=== PATIENT | female | born 1955 | race Caucasian/White ===

== ENCOUNTER 2017-02-23 15:00 | Inpatient (IN) | payer OTHER ==
[~2017-02-23] VITALS: Ht 160 cm; Wt 77.9 kg
--- NOTE | ~2017-02-23 | OR ---
[facility]GE[facility] 61 Y [address] ROOM: [place] [address] LOCATION: [facility] ADMIT DATE: 03/08/2017 OR/Procedure Report DISCHARGE DATE: FAMILY PHYSICIAN: Ryann Vaz MD ATTENDING PHYSICIAN: ROBERTH CORONADO SURGEON: Roberth Coronado MD STATION USHER: LIZZY Yoder and Timothy Salvador CST/TRAIN GATE ATTENDANT. DATE OF PROCEDURE: 03/08/2017 PRE-OP DIAGNOSIS: Left knee degenerative joint disease (primary osteoarthritis). POST-OP DIAGNOSIS: Left knee degenerative joint disease (primary osteoarthritis). OPERATION: Left total knee arthroplasty with computer navigation. ANESTHESIA: Spinal anesthesia plus adductor canal block plus general endotracheal anesthesia plus periarticular local anesthesia (ropivacaine with epinephrine and Toradol). ESTIMATED BLOOD LOSS: Less than 10 mL. DRAIN: None. SPECIMEN: None. COMPLICATIONS: None. IMPLANT SYSTEM: Leonarda Triathlon Size 4 left posterior stabilized femoral component Size 3 universal modular tibial base plate 9 mm posterior stabilized size 3 X3 tibial polyethylene insert 32 mm oval X3 patella component (triple pegged). INDICATIONS FOR SURGERY: Ms. Lupe Fang is a 61-year-old female who presents with advanced left knee degenerative joint disease and associated severely compromised activities of daily living. The patient has decided to proceed with knee replacement after having been thoroughly counseled regarding the associated risks, benefits, and limitations. We have specifically reviewed the risks and implications of infection, deep venous thrombosis, pulmonary embolism, mortality, neurovascular complications, blood transfusion (and associated potential for disease transmission or transfusion reaction), stiffness, instability, mechanical deterioration of the components (due to PAT[facility] AGE: 61 Y [address] ROOM: [place] [address] LOCATION: [facility] ADMIT DATE: 03/08/2017 OR/Procedure Report DISCHARGE DATE: FAMILY PHYSICIAN: Ryann Vaz MD ATTENDING PHYSICIAN: ROBERTH CORONADO wear and or loosening), and the potential need for revision. We have also emphasized the importance of active involvement and compliance with post- operative physical therapy as a means of optimizing range of motion and functional recovery. Informed consent has been granted. DESCRIPTION OF PROCEDURE: The patient was positioned supine after administration of anesthesia and prophylactic antibiotics. A well-padded pneumatic tourniquet was placed around the left proximal thigh, and the left lower extremity was prepped and draped with vigilant sterile technique. The patient's name as well as the intended operative side and procedure were confirmed with a verbal time-out involving myself, the circulating nurse, the scrub nurse, and the anesthesiologist. Examination under anesthesia demonstrated no active skin lesions or masses. There was a moderate effusion. There was no erythema. There was no abnormal warmth. There were well healed inferomedial and inferolateral arthroscopy portal scars. Range of motion under anesthesia was from a 10-degree flexion contracture to 110-degrees of flexion. There was no ligamentous insufficiency. The left lower extremity was elevated and exsanguinated with an Esmarch wrap, and the pneumatic tourniquet was inflated to 300mmHg. The knee was approached through a longitudinal midline incision. A medial parapatellar arthrotomy was performed and the patella was everted. Examination of the joint space demonstrated a moderate amount of benign appearing translucent synovial fluid. There was a large osteophyte at the intercondylar notch. There were no loose bodies. There was mild generalized nonproliferative synovitis. There was fibrosis of the infrapatellar fat pad. This was excised. The cruciate ligaments were intact. The anterior 2/3rd of the medial meniscus was truncated. There was mild inner parameter tearing of the lateral meniscus. There were large osteophytes at the medial femoral condyle, medial tibial plateau, and superior patella. There were 2 separate 1 cm diameter regions of full thickness articular cartilage at the patella (one at the lateral facet and one at the medial aspect of the apex). There was a 1 cm wide area of full thickness articular cartilage loss extending sagitally centrally within the femoral trochlea. There were large osteophytes at the medial and lateral margins of the femoral trochlea. There was full thickness loss of articular cartilage involving 90% of the medial femoral condyle and 80% of the medial tibial plateau. There was grade 2 chondromalacia involving the lateral femoral condyle and the medial half of the lateral tibial plateau. Remnants of the menisci and cruciate ligaments were excised. The EpiSensor navigation femoral tracker was pinned in place at the distal aspect of the femoral trochlea. Absence of motion between the femur and the tracking PATIENT'S NAME: LUPE FANG [facility] AGE: 61 Y [address] ROOM: [address] [place], [place] [address] LOCATION: [facility] ADMIT DATE: 03/08/2017 OR/Procedure Report DISCHARGE DATE: FAMILY PHYSICIAN: Ryann Vaz MD ATTENDING PHYSICIAN: ROBERTH CORONADO device was confirmed manually and visually. Femoral osseous landmarks were obtained in order to calibrate the computer navigation system. Landmarks included the center of rotation of the ipsilateral hip, the center-point of the distal femur, the femoral AP axis, 57 points on the medial femoral condyle articular surface, and 57 points on the lateral femoral condyle articular surface. The Oversee computer navigation system was subsequently utilized to position the distal femoral resection block such that the distal femoral resection was performed perfectly perpendicular to the femoral mechanical axis. The distal femoral resection was performed with a Viewpoint oscillating saw. The Oversee computer navigation tibial tracker was pinned in place at the anterior aspect of the tibial plateau. Absence of motion between the tibia and the tracking device was confirmed manually and visually. Tibial osseous landmarks were obtained in order to calibrate the computer navigation system. Landmarks included the center-point of the tibial plateau, the AP tibial axis, 57 points on the medial tibial plateau articular surface, 57 points on the lateral tibial plateau articular surface, the medial malleolus, and the lateral malleolus. The Oversee computer navigation system was subsequently utilized to position the proximal tibial resection block such that the proximal tibial resection was performed perfectly perpendicular to the tibial mechanical axis. The proximal tibial resection was performed with a [employer] Precision oscillating saw. Perpendicularity of the tibial resection with respect to the tibial shaft axis was reconfirmed by inserting a spacer- block attached to an extramedullary guide mau. External rotation of the anterior and posterior femoral resections was set parallel to the epicondylar axis and carefully adjusted in order to create a rectangular flexion gap. The box resection was performed with a reciprocating saw. Anterior and posterior chamfer resections were performed with the oscillating saw. Posterior condyle osteophytes were excised with an osteotome. All other osteophytes were excised with a rongeur. Resection of all remnants of the menisci was reconfirmed. Flexion and extension gaps were confirmed to be symmetric and well balanced with a spacer-block technique. The patella resection was performed with an oscillating saw such that the composite thickness of the reconstructed patella was equivalent to the thickness of the eyak patella. Patella tracking was confirmed to be optimal. Patellar tracking was optimal and there was no need for a lateral retinacular release. All trial components were removed and all prepared osseous surfaces were thoroughly irrigated with pulsatile saline lavage and dried prior to cementing all three components in a single stage using Leonarda Simplex cement containing pre-mixed tobramycin. All extruded excess cement was removed. The entire PATIENT'S NAME: LUPE FANG [facility] AGE: 61 Y [address] ROOM: [address] [address] LOCATION: [facility] ADMIT DATE: 03/08/2017 OR/Procedure Report DISCHARGE DATE: FAMILY PHYSICIAN: Ryann Vaz MD ATTENDING PHYSICIAN: ROBERTH CORONADO joint space was thoroughly inspected and thoroughly irrigated with bacteriostatic pulsatile saline lavage to assure that there was no residual debris of any sort. Final range of motion was from full extension (with no passive hyperextension) to 130 degrees of flexion. Patella tracking was reconfirmed to be optimal. There was excellent anteroposterior stability at 90 degrees of flexion. There was 0-mm of medial lift-off to valgus stress in full extension. There was 1- mm of lateral lift-off to varus stress in full extension. The arthrotomy was closed with multiple simple and [id number] interrupted #1 Vicryl. Subcutaneous tissues were thoroughly re-irrigated with bacteriostatic pulsatile saline lavage. Subcutaneous tissues were re- approximated with simple buried interrupted #0 Vicryl sutures. The skin was closed with simple buried interrupted 2-0 Vicryl sutures followed by surgical bharat. The dressing consisted of Xeroform gauze, 4x4 gauze, ABD pads and two 6-inch Laith Wraps. There were no intra-operative complications. It should be noted that the physician's veterinary assistant played an active, integral role throughout this entire operation. By providing expert retraction, they greatly facilitated and expedited safe and effective exposure of the distal femur, proximal tibia and patella for preparation and implantation of the components. They were also actively involved in the patient's positioning, prepping and draping, as well as wound closure. MD DANNY SANCHEZ/carmen /[id number] d: 03/08/17 1432 t: 03/21/17 1310, OPERATIVE SUMMARY
--- NOTE | ~2017-02-23 | DS ---
PATIENT'S NAME: [facility] AGE: 61 Y [address] ROOM: [place] [address] LOCATION: [facility] ADMIT DATE: 03/08/2017 Discharge Summary DISCHARGE DATE: 03/10/2017 FAMILY PHYSICIAN: Ryann Vaz MD ATTENDING PHYSICIAN: Gurjit Szymanski PRIMARY DIAGNOSIS: Degenerative joint disease of the left knee. SECONDARY DIAGNOSES: 1. Anxiety. 2. History of diverticulosis. 3. Gastroesophageal reflux disease. 4. History of Clostridium difficile. 5. Osteopenia. 6. Mixed dyslipidemia. PROCEDURE PERFORMED: Right total knee arthroplasty. HISTORY: The patient is a 61-year old female, who presents with advanced left knee degenerative joint disease and associated severely compromised activities of daily living. The patient has decided to proceed with total knee arthroplasty after having been thoroughly counseled regarding the risks, benefits, limitations and alternatives. Please refer to the outpatient clinic notes and admission history and physical for this patient. HOSPITAL COURSE: The patient underwent a left total knee arthroplasty on 03/08/2017 without complications. Spinal anesthesia plus adductor canal block plus general endotracheal anesthesia plus periarticular local anesthesia was utilized. The patient received 24 hours of perioperative prophylactic antibiotics and remained hemodynamically stable, neurovascularly intact throughout the entire hospital course. The postoperative prophylactic deep venous thrombosis prophylaxis consisted of aspirin 325 mg, early mobilization and pneumatic compression devices. Daily physical therapy for gait training, transfer training range of motion and quadriceps isometric exercises were received. The patient progressed well in physical therapy. On the date of discharge, 03/10/2017, the incision at the knee was healing well and showed no signs of infection. DISPOSITION: Home. DISCHARGE ACTIVITY: The patient is to bear weight as tolerated with range of motion and quadriceps isometric exercises as instructed. The operative extremity is to be elevated at least 90% of the day. There is to be sterile 4x4 gauze dressings to the incision daily. Dr. Szymanski is to be notified immediately if there is any increased pain, fevers, chills erythema or PATIENT'S NAME: [facility] AGE: 61 Y [address] ROOM: [place] [address] LOCATION: [facility] ADMIT DATE: 03/08/2017 Discharge Summary DISCHARGE DATE: 03/10/2017 FAMILY PHYSICIAN: Ryann Vaz MD ATTENDING PHYSICIAN: Gurjit Szymanski. DISCHARGE MEDICATIONS: 1. Aspirin 325 mg 1 tab p.o. daily for 30 days for postoperative DVT prophylaxis. 2. Hydromorphone 2 mg 1-2 tabs p.o. every 4 hours p.r.n. for pain. 3. She was instructed then instructed to continue all her other preadmission medications as instructed by her Internal Medicine physician. FOLLOWUP: Followup appointment is to be with Dr. Szymanski's office on 03/15/2017 for initial postoperative evaluation with x-rays and suture removal of her left knee at that time. PEPPER FINLEY PA-C FOR GURJIT SZYMANSKI MD SMW/modl /[id number] d: 03/15/17 0141 t: 03/15/17 0827, DISCHARGE SUMMARY
[2017-02-23] MEDS ORDERED: LIPITOR40 MG PO (16:39)
[2017-02-23] MEDS ORDERED: WOMEN'S MULTI200 MCG PO (16:40)
[2017-02-23] MEDS ORDERED: ALEVE220 MG PO (16:40)
[2017-02-23] MEDS ORDERED: MAGNESIUM250 M1 PO (16:41)
[2017-02-23] MEDS ORDERED: VITAMIN D35000 UNI1 PO (16:41)
--- NOTE | 2017-03-08 14:46 | NUR ---
Significant Event: PT ARRIVED FROM PACU AT 1155, L TKA FOR DR CORONADO. LATEX ALLERGY. DRESSING INTACT TO LLE. WBAT. UP WITH 1PA, GAITBELT AND WALKER TO CHAIR THIS AFTERNOON. STATES PAIN IS TOLERABLE, NO PRNs GAVE SO FAR THIS SHIFT. TOLERATED LIQUIDS, ADVANCED TO REGUALR DIET. IV TO L HAND SALINE LOCKED. Follow up: MONITOR PAIN
--- NOTE | 2017-03-09 03:25 | NUR ---
Shift Summary: Patient can ambulate with standby assist. Able to get in and out of bed without assist. Good pain control with 4mg Dilaudid about every 4hr. Tolerating regular diet well. Voiding without difficulty. Has acid reflux. Gave one dose of Zofran and a tums with HS meds. On room air all shift.
--- NOTE | 2017-03-09 09:55 | NUR ---
Introduced self/role to patients. She will have her at home. She denied any barriers to going home or at home. She plans to discharge tomorrow. Added my name to her marker board.
--- NOTE | 2017-03-09 17:04 | NUR ---
Significant Event:PT. UP TO CHAIR AND BR WITH STANDBY ASSIST AND WALKER. ATE SOME OF BREAKFAST AND BY 1300 STATED FELT NAUSEATED AND THEN HAD 200ML EMESIS. ZOFRAN GIVEN AND REFUSED TYLENOL UNTIL LATER. REFUSED LUNCH. IV S/L'D. DRESSING TO LLE D/I. DILAUDID PO GIVEN FOR PAIN. Follow up:
--- NOTE | 2017-03-10 03:38 | NUR ---
Significant Event: Alert/oriented x3. Possible dismissal to home today. Bilateral foot pumps. Removed Efren hose at HS. Dressing C/D/I. EZ wrap applied. 1 assist ambulation/transfers. Saline lock in left hand. Dilaudid 2 mg at 2200; scheduled Tylenol, next at 0500. Nauseous yesterday on day shift, no N/V this shift. VSS, CSM WNL. Tums at 1920 for acid reflux. Latex allergy. Follow up:
--- NOTE | 2017-03-10 04:18 | NUR ---
1 void credited to day shift.
[2017-03-10] MEDS ORDERED: TYLENOL EXTRA500 MG PO (11:53)
[2017-03-10] MEDS ORDERED: ECOTRIN325 MG PO (11:54)
[2017-03-10] MEDS ORDERED: COLACE100 MG PO (11:55)
[2017-03-10] MEDS ORDERED: PEPCID20 MG PO (11:59)
[2017-03-10] MEDS ORDERED: MIRALAX17 GM PO (12:00)
[2017-03-10] MEDS ORDERED: DILAUDID 2MG(HYD2 MG PO (12:01)
--- NOTE | 2017-03-10 14:14 | NUR ---
PY GIVEN DISCHARGE INSTRUCTIONS AND VOICES UNDERSTANDING. MEDICATIONS AND DRESSING MAINTAINENCE REVIEWED WITH PT. DAUGHTER AT PT'S SIDE. ESCORTED TO THE FRONT DOOR BY THIS NURSE.
== END 2017-03-10 13:45 | disposition disaster alternative care site (69) | DRG 470 ==
LOC: G3N 03-08 06:04
PROVIDERS: ADMIT Orthopaedic Surgery
PROC: XR2H021 Monitoring of Left Knee Joint using Intraoperative Knee Replacement Sensor, Open Approach, New Technology Group 1 (ICD-10-PCS; principal; 2017-03-08)
PROC: 0SRD0J9 Replacement of Left Knee Joint with Synthetic Substitute, Cemented, Open Approach (ICD-10-PCS; principal; 2017-03-08)
DX: M17.12 Unilateral primary osteoarthritis, left knee (principal); E78.2 Mixed hyperlipidemia; F41.9 Anxiety disorder, unspecified; K21.9 Gastro-esophageal reflux disease without esophagitis; M85.80 Other specified disorders of bone density and structure, unspecified site; Z86.19 Personal history of other infectious and parasitic diseases; Z87.19 Personal history of other diseases of the digestive system
CPT/HCPCS: C1713; C1776; J0690; J1100; J1885; J2001; J2250; J2405; J2795; J7120

== ENCOUNTER → 2017-02-24 | Outpatient (CLI) | payer OTHER ==
[~2017-02-24] MED LIST: ALEVE220 MG PO; COLACE100 MG PO; DILAUDID 2MG(HYD2 MG PO; ECOTRIN325 MG PO; LIPITOR40 MG PO; MAGNESIUM250 M1 PO; MIRALAX17 GM PO; PEPCID20 MG PO; TYLENOL EXTRA500 MG PO; VITAMIN D35000 UNI1 PO; WOMEN'S MULTI200 MCG PO
== END | disposition disaster alternative care site (69) ==
LOC: GNJRC 10:32
DX: Z01.812 Encounter for preprocedural laboratory examination (principal); M17.12 Unilateral primary osteoarthritis, left knee